=== PATIENT | male | born 1995 | race Caucasian/White ===

== ENCOUNTER 2020-12-18 10:13 | Emergency (ER) | payer BC ==
[~2020-12-18] VITALS: Ht 177.8 cm; Wt 100.0 kg
[2020-12-18 11:41] LABS: BASO % 0.5 % (0.0-1.0); EOS # 0.1 10^3/uL (0.0-0.5); EOS % 0.7 % (0.0-3.0); HEMATOCRIT 46.3 % (42.0-52.0); HEMOGLOBIN 16.3 g/dl (13.5-17.5); LYMPH # 1.4 10^3/uL (1.5-5.0); MEAN CORPUSCULAR HEMOGLOBIN 31.3 pg (27.0-33.0); MEAN CORPUSCULAR HGB CONC 35.2 g/dl (32.0-36.5); MONO # 0.5 10^3/uL (0.0-0.8); MONO % 5.9 % (2.0-8.0); NEUTROPHILS # 5.7 10^3/uL (1.5-8.5); NEUTROPHILS % 74.5 % (36.0-66.0); PLATELET COUNT, AUTOMATED 232 10^3/uL (150-450); WHITE BLOOD COUNT 7.6 10^3/uL (4.0-10.0)
--- NOTE | 2020-12-18 11:49 | REP ---
INDICATION: abd pain. COMPARISON: None. TECHNIQUE: PA chest with two-view abdomen. FINDINGS: PA chest: The lung guzman are well inflated and without pleural effusion, lateral pleural thickening, apical scarring or pneumothorax. There is no infiltrate, atelectasis or mass. The heart is not enlarged. There is no vascular redistribution or pulmonary edema. The aorta and airway were unremarkable. Mediastinal and hilar contours were normal. The bony thorax shows no acute finding. There is no free air under the diaphragm. Abdomen: Two views show nonspecific gas pattern with small amounts of stool scattered in the right and transverse colon. There is a paucity of stool and gas in the left colon and rectosigmoid. The small bowel loops also show a paucity of gas overall with nonspecific gas pattern. No dilated loops or air-fluid levels. No abnormal calcifications over the renal fossae, expected course of the ureters or overlying the shadow of the bladder. Bony structures demonstrate incomplete fusion of the spinous process of L5 which is an anatomic variation. The other spinous processes, pedicles, transverse processes, lower thoracic vertebral levels and associated ribs were all grossly intact. The sacrum, SI joints, pelvis and hips were also unremarkable. IMPRESSION: 1. No acute cardiopulmonary change in the chest. 2. Nonspecific gas pattern without obstruction, mass or free air. No air-fluid levels abut a paucity of gas overall. I could not exclude some gastroenteritis mild ileus. No significant or acute finding. <Electronically signed by Cliff Wynn > 12/18/20 [id number]
[2020-12-18 12:10] LABS: ALBUMIN 4.7 GM/DL (3.2-5.2); ALT/SGPT 30 U/L (12-78); BILIRUBIN,DIRECT 0.2 MG/DL (0.0-0.2); BILIRUBIN,TOTAL 0.7 MG/DL (0.2-1.0); BLOOD UREA NITROGEN 15 MG/DL (7-18); CALCIUM LEVEL 10.2 MG/DL (8.5-10.1); CARBON DIOXIDE LEVEL 28 MEQ/L (21-32); CHLORIDE LEVEL 106 MEQ/L (98-107); CREATININE FOR GFR 1.14 MG/DL (0.70-1.30); GLOMERULAR FILTRATION RATE > 60.0 (>60); GLUCOSE, FASTING 106 MG/DL (70-100); LIPASE 105 U/L (73-393); POTASSIUM SERUM 4.2 MEQ/L (3.5-5.1); SODIUM LEVEL 140 MEQ/L (136-145); TOTAL PROTEIN 8.7 GM/DL (6.4-8.2)
[2020-12-18] MEDS ORDERED: PEPC1TAB5 PO (12:26)
[2020-12-18] MEDS ORDERED: CARA1TAB6 PO (12:27)
[2020-12-18 12:45] VITALS: BP 151/87
== END 2020-12-18 12:47 | disposition home or self-care (01) ==
LOC: M ED 10:13
DX: K29.00 Acute gastritis without bleeding (principal)

== ENCOUNTER → 2021-03-15 | Outpatient (CLI) | payer BC ==
[~2021-03-15] MED LIST: CARA1TAB6 PO; PEPC1TAB5 PO
--- NOTE | 2021-03-15 11:42 | REPVR ---
PROCEDURE INFORMATION: Exam: CT Head Without Contrast Exam date and time: 03/15/2021 11:17 AM Age: 25 years old Clinical indication: Pain; Headache; Additional info: Dizziness TECHNIQUE: Imaging protocol: Computed tomography of the head without contrast. Radiation optimization: All CT scans at this facility use at least one of these dose optimization techniques: automated exposure control; mA and/or kV adjustment per patient size (includes targeted exams where dose is matched to clinical indication); or iterative reconstruction. COMPARISON: No relevant prior studies available. FINDINGS: Brain: No acute intracranial hemorrhage, cerebral edema, or midline shift. Cerebral ventricles: No hydrocephalus. Paranasal sinuses: There is no acute sinusitis. Mastoid air cells: There is minimal fluid in the left mastoid air cells. Orbital cavity: Unremarkable as visualized. Bones/joints: No acute fracture. Soft tissues: Unremarkable. IMPRESSION: No acute intracranial abnormality. Electronically signed by: Tal Hankins On 03/15/2021 11:41:53 AM
== END ==
LOC: M RAD 11:10
PROVIDERS: ATTEND Family Medicine
DX: R42 Dizziness and giddiness (principal)

== ENCOUNTER → 2021-04-24 | Outpatient (CLI) | payer BC ==
[~2021-04-24] MED LIST changes: +OMEP-221 PO
== END ==
LOC: M LABSMTC 10:36
PROVIDERS: ATTEND Anesthesiology
DX: Z01.812 Encounter for preprocedural laboratory examination (principal); Z20.822 Contact with and (suspected) exposure to COVID-19

== ENCOUNTER → 2021-04-28 | Day surgery (SDC) | payer BC ==
[~2021-04-28] VITALS: Ht 177.8 cm; Wt 95.3 kg
[~2021-04-28] MED LIST changes: +LIDOCAINE 2% 100MG/5ML SDV (FOR ANES.) As Ordered ONE; +NS 1,000 ML IV ONE; +fentaNYL 100 MCG/2 ML INJECTION (J3010) As Ordered ONE; +propofoL 200 MG/20 ML VIAL As Ordered ONE
--- OUTSIDE RECORDS SUMMARY | 2021-04-28 13:01 | CCD | Continuity of Care Document ---
Author Author Carson LEE M.D. Organization Unknown Address [address] [place] [id number] Phone [phone] Care Team Providers Care Bun Machine Operator Name Role Phone Ignacio Miller M.D. AUTM [phone] Problems Active Problems Provider Date Abdominal pain Rafal Lee M.D. Onset: 04/15/20 21 Social History Type Date Description Comments Sex Unknown ETOH Use Occasionally Tobacco Use Start: Unknown Patient has never smoked Allergies and adverse reactions Description No Known Drug Allergies Medications Description No Active Medications Immunizations Description No Information Available Vital Signs Date Vital Result Comment 04/15/2021 12:09pm Height 70 inches 5'10" Weight 214.00 lb BP Systolic 129 mmHg BP Diastolic 86 mmHg Heart Rate 57 /min BMI (Body Mass Index) 30.7 kg/m2 Weight 97.070 kg Body Temperature 97.3 F Results Description No Information Available Procedures Date Code Description Status 04/15/2021 15233 Office/Outpatient New Low MDM 30 -44 Minutes Completed Medical Devices Description No Information Available Encounters Type Date Location Provider Dx Diagnosis Office Visit 04/15/2021 11:45a Main Office Rafal Lee M.D. R 10.9 Unspecified abdominal pain Assessments Date Code Description Provider 04/15/2021 R10.9 Unspecified abdominal pain Bharti Lee M.D. Plan of Treatment Future Appointment(s):* 04/21/2021 8:30 am - Rissa at Main Office * 04/28/2021 8:45 am - Rafal Lee M.D. at Main Office 04/15/2021 - Rafal Lee M.D.* R10.9 Unspecified abdominal pain* New Xrays:* Ultrasound of the Gallbladder, Ordered: 04/15/21 * Comments:* 25 yo wm who presents for a h/o right sided intermittent abdominal pain since summer. He had abdominal pain/nausea/vomiting after drinking red bull + vodka. He had some relief from the ppi + sulcrafate. Poorly compliant. No nausea/vomiting. Lost weight, gaining it back. Plan:1. Omeprazole 40 mgs po qd + Sulcrafate bid.2. Egd + gallbladder us3. Alcohol in moderation only. Functional Status Description No Information Available Mental Status Description No Information Available Referrals Description No Information Available
--- OUTSIDE RECORDS SUMMARY | 2021-04-28 13:01 | CCD | Clinical Summary ---
Author [facility] Organization [facility] Address [address] [place] [address] Phone Care Team Providers Care Behavioral Geneticist Name Role Phone Ignacio Miller MD Unavailable [phone] Reason for Referral No Reason for Referral Recorded Reason for Visit and Chief Complaint The Chief Complaint is: pt ambulated to the room well with continued c/o's abdo bob pain, dizzines s, andf fatigue,Jkimball deployment specialist was with this pt for 9 minutes Problems Includes: Problems addressed during this encounter and other active Problems Current Visit Onset Date - Time Resolved Date - Time Provider C ondition Status Alcohol Abuse 03/02/2021 - 6:42PM Ignacio Miller MD Active Vertigo 03/02/2021 - 3:35PM Ignacio Miller MD A ctive Peptic Ulcer 12/31/2020 - 3:26PM Ignacio Miller MD A ctive Plan of Treatment Pending Tests Order Diagnosis Results Due Ordering Provi kim Lab OCCULT BLOOD 03/09/21 Ignacio shrestha MD Lab VITAMIN B12 04/01/21 Ignacio shrestha MD Lab CBC w/ Auto Diff 04/01/21 Ignacio ponce MD Lab COMPREHENSIVE METABOLIC PANEL 04/01/21 Ignacio Miller MD Lab IRON 04/01/21 Ignacio shrestha MD Lab FOLATE 04/01/21 Ignacio shrestha MD Lab Lyme Total Ab w/ Reflex,S 04/01/21 Gl enn Nadia Miller MD Lab MAGNESIUM 04/01/21 Ignacio shrestha MD Lab TSH 04/01/21 Ignacio shrestha MD Referrals To Diagnosis GI Peptic [facility], site uns p, unsp as ac or chr, w/o hemor or perf Note: Please schedule patient with provi kim. Pt presented with abdominal pain to right of umbilicus in early December 2020, treated with omeprazole with improvement but stomach still hurts. Please eval. Would like [place]. Future Appointments Date Time Location Provider Chronic Disease Follow-up 04/07/2021 3:30PM [facility] Ignacio Miller MD [facility] 01/06/2022 11:10AM [facility] Ignacio calderón MD Future Tests Order Diagnosis Results Due Ordering Provid er Lab CT BRAIN HEAD WO CONTRAST 03/02/21 Gl yonas Miller MD - Instructions for patient Labwork and CT of head ordered. Ordered for the persistent dizziness in addition to that vague heavy sensation of right LE and his concerns he could have a brain tumor. Acamprosate discussed to use to help limit alcohol use. He says he has done fine just on his own, not drinking, without meds, plans to continue that. GI referral submitted F/u 1 month - Return to the clinic if condition wors ens or new symptoms arise Assessments Includes: Assessments from this encounter - Peptic ulcer - Vertigo - Alcohol abuse Instructions Includes: Instructions from this encounter Instructions to patient Instructions for patient ~Labwork and C T of head ordered. Ordered for the persistent dizziness in addition to that vague heavy sensation of right LE and his concerns he could have a brain tumor. ~Acamprosate discussed to use to help limit alcohol use. He says he has done fine just on his own, not drinking, without meds, plans to continue that. ~GI referral submitted ~F/u 1 month Education and Decision Aids were provide d during visit for: Patient education and counseling provid ed for chronic care goals and plan Patient appeared to understand therapeut ic regimen for Medications and Plan of Care; Assessed using Teach-back Method Medical Equipment - Implanted Devices Includes: Current DevicesNo Medical Equipment Recorded Medications Includes: Medications discussed during this encounter and other current Medicati ons Discontinued / Stopped on this date on 12/18/2020 Sucralfate 1 GM Oral Tablet Provider: Diagnosis: Current Medications (continue as prescribed) Omeprazole 40 MG Oral Capsule Delayed Release 12/31/2020 Provider: Ignacio Miller MD Diagnosis: Acute peptic ulcer, site unsp, w/o hemorrhage or perforation once a day Medications Administered Includes: Administered Medications from this encounterNo Administered Medications Recorded Vital Signs Includes: Vital Signs from this encounter Vital Name 03/02/2021 03:01P Blood Pressure Sitting L 126/76 BP Cuff Size Large Pulse Rate-Sitting (bpm) 82 Pulse Rhythm Regular Respiration Rate (breaths/min) 68 Temp-Tympanic (F) 204 Height (in) 68 Weight (lb) 204 Body Mass Index (kg/m2) 31.0 Body Surface Area (m2) 2.06 Pain Level 3 Oxygen Saturation (%) 98 Results Includes: Results discussed during this encounterNo Results Recorded For Specified Dates History of Present Illness Includes: History of Present Illness from this encounter Carson Ryan is a 25 year old male. - Medication reconciliation performed. Carson presents for f/u abdominal pain and dizziness. He was seen by me 12/31/20 and started omeprazole for what felt like an ulcer on exam. He says that particular stomach pain went away, but he is still dizzy. Dizziness can be all day, or on and off every 30 minutes. Has not gone a whole day without being dizzy. Sometimes it is only mild. Other times it is more of a loss of focus. Does not snore loudly. Has never been told he stops breathing when he is sleeping. Gets dizzy whether sitting down or standing. Usually not dizzy when he gets up in the morning, but when he eats starts getting dizzy. Eating 3 meals a day. Just recently notices right LE seems to get fatigued easier than it should. Feels tired to move it from the hip down, but not the left leg. Admits to sometimes heavy alcohol use. Was drinking 15 beers or more a day on the weekends for weeks but stopped the alcohol 2 weeks ago and thinks that is partly why he feels better. No medical issues run in the family. Social History Description Last Updated Not using drugs 12/31/2020 Smoking status 12/31/2020 : Never smoker 12/31/2020 Alcohol use (male) less than 4 drinks per occasion / 14 per week 11/12/2013 Educational level 12 11/12/2013 Exercise frequency 11/12/2013 No physical disability 11/12/2013 Normal activities of daily living 11/12/2013 Secondhand cigarette smoke exposure 12/31/2012 control method 10/31/2012 Sexually active 10/31/2012 Social history unchanged 10/31/2012 Not a current smoker states he has chew ed tobacco in the past but no longer does it 10/31/2012 Caffeine use 10/31/2012 Poor exercise habits 10/31/2012 Amount of sleep was nine hours/day 10/31/2011 2 snacks per day 10/31/2011 3 meals per day 10/31/2011 Diet provides sufficient food variety 10/31/2011 Activities 10/31/2011 Educational level: grade was ten 10/31/2011 Not working part-time 10/31/2011 Procedures and Surgical History Surgical History Last Updated No prior surgery 09/25/2013 Medical History Includes: Medical History addressed during this encounter Description Last Updated 2008--Laceration repair to right forea rm "down to the bone" from a bed spring in his bed 11/12/2013 No smoke exposure 09/25/2013 Not taking medication 09/25/2013 Past medical history -Please see Problem List for Act francesca Chronic Problems 09/25/2013 A high-salt diet not from processed foods 10/17/2007 Diet does not need elimination of junk food 10/17/2007 Diet provides sufficient fruit 10/17/2007 Diet provides sufficient vegetables 10/17/2007 Family History Includes: Family History addressed during this encounter Description Last Updated Family history reviewed - unchanged since last visit 09/25/2013 Family history unchanged 09/25/2013 Review of Systems Includes: Review of Systems from this encounter Gastrointestinal: Abdominal pain right upper abdominal pain. Musculoskeletal: Musculoskeletal symptoms right sided weakness. Neurological: Dizziness. Mental Status Includes: Mental Status from this encounter Description Oriented to time, place, and person Functional Status Includes: Functional Status from this encounterNo Functional Status Recorded Physical Exam Includes: Physical Exam from this encounter Lungs: -normal breath sounds/voice sounds -no wheezing was heard -no rhonchi were heard -no rales/crackles were heard Cardiovascular System: -no murmurs were heard -heart rate and rhythm normal -no bradycardia present -no tachycardia present Abdomen: -the bowel sounds were normal -abdominal tenderness -no mass was palpated in the abdomen -the liver was not enlarged -the spleen was not enlarged Psychiatric Exam: -the grooming was normal -the affect was normal -the mood was euthymic Neurological System: -the cranial nerves were normal -no sensory exam abnormalities were noted -the deep tendon reflexes were normal -oriented to time, place, and person General Status: -in no acute distress -well developed -well developed -well nourished -well nourished Vital Signs: -current vital signs reviewed Immunizations Includes: Immunizations addressed during this encounterNo Immunizations Recorded Allergies Includes: Active AllergiesNo Known Allergies Encounters Encounter Provider Location Date Check-In Time Check-Out Time D iagnosis Medication Follow-up Ignacio Miller MD [facility] 03/02/2021 2 :56PM 3:56PM Peptic Ulcer, Vertigo, Alcohol Abuse Insurance Includes: Active Insurance Policies Plan Name Member ID Group # Subscriber Relationship Effective Da fanta 1 - [employer] [id number] Brian Ryan 06/30/2018 - Unknown 2 - D [employer] [id number] Shelby Nessa Jose Child 04/28/2012 - 05/28/2014 Advance Directives Includes: Current Advance Directives Directive Pat Aware Third Alliance Party Effective Date Reviewed Status packet given Pt Bill of Rights, Priv Prac, Ad Dir Yes 12/31/2020 Current and Verified Note: declined Health Concerns Includes: Health Concerns addressed during this encounterNo Active Health Concerns Recorded Goals Includes: Goals addressed during this encounterNo Active Goals Recorded Interventions Includes: Interventions addressed during this encounterNo Interventions Recorded Evaluations & Outcomes Includes: Evaluations & Outcomes addressed during this encounterNo Outcomes Recorded
--- OUTSIDE RECORDS SUMMARY | 2021-04-28 13:01 | CCD | Clinical Summary ---
Author Author [facility] Organization [facility] Address [address] [place] [address] Phone Care Team Providers Care Copyright Manager Name Role Phone Ignacio Miller MD Unavailable [phone] Reason for Referral No Reason for Referral Recorded Reason for Visit and Chief Complaint The Chief Complaint is: pt ambulated to the room well with continued c/o's abdo bob pain, dizzines s, andf fatigue,Jkimball commissary representative was with this pt for 9 minutes Problems Includes: Problems addressed during this encounter and other active Problems Current Visit Onset Date - Time Resolved Date - Time Provider C ondition Status Vertigo 03/02/2021 - 3:35PM Ignacio Miller MD [...] shrestha MD Referrals To Diagnosis GI Peptic ulc, site uns p, unsp as ac or chr, w/o hemor or perf Note: Please schedule patient with provi kim. Pt presented with abdominal pain to right of umbilicus in early December 2020, treated with omeprazole with improvement but stomach still hurts. Please eval. Would like [place]. Future Appointments Date Time Location Provider [facility] 01/06/2022 11:10AM [facility] Ignacio calderón MD Future Tests Order Diagnosis Results Due Ordering Provid er Lab CT BRAIN HEAD WO CONTRAST 03/02/21 John Miller MD - Instructions for patient Labwork and CT of head ordered GI referral submitted F/u 1 month - Return to the clinic if condition wors ens or new symptoms arise Assessments Includes: Assessments from this encounter - Peptic ulcer - Vertigo Instructions Includes: Instructions from this encounter Instructions to patient Instructions for patient ~Labwork and C T of head ordered ~GI referral submitted ~F/u 1 month Education [...] hip down, but not the left leg. No medical issues run in the family. [...] D iagnosis Medication Follow-up Ignacio Miller MD [facility] 03/02/2021 2 :56PM 11:59PM Peptic Ulcer, Vertigo Insurance Includes: Active Insurance Policies Plan Name Member ID Group # Subscriber Relationship Effective Da fanta 1 - [employer] [id number] Brian Ryan 06/30/2018 - Unknown 2 - D [employer] [id number] Nessa Ryan Child 04/28/2012 - 05/28/2014 Advance Directives Includes: Current Advance Directives Directive Pat Aware Third Green Party Effective Date Reviewed Status packet given [...]
== END | disposition home or self-care (01) ==
LOC: M OPP 12:56
PROVIDERS: ATTEND Internal Medicine Gastroenterology
DX: R10.13 Epigastric pain (principal); Z53.8 Procedure and treatment not carried out for other reasons

== ENCOUNTER → 2021-05-03 | Outpatient (CLI) | payer BC ==
[~2021-05-03] MED LIST changes: -LIDOCAINE 2% 100MG/5ML SDV (FOR ANES.) As Ordered ONE; -NS 1,000 ML IV ONE; -fentaNYL 100 MCG/2 ML INJECTION (J3010) As Ordered ONE; -propofoL 200 MG/20 ML VIAL As Ordered ONE
--- NOTE | 2021-05-03 09:13 | REP ---
INDICATION: GULLBLADDER COMPARISON: None. TECHNIQUE: Real time james scale ultrasound examination using curved array transducer. FINDINGS: Liver is normal in contour, size, and echogenicity without focal hepatic lesions identified. Pancreas is incompletely evaluated due to interposed bowel gas. The gallbladder is normal and without gallstones, wall thickening, or pericholecystic fluid. No biliary ductal dilatation is appreciated and the common bile duct measures 2.9 mm diameter. Right kidney is normal in reniform shape without hydronephrosis and measures 11.1 x 5.7 x 5.0 cm. No ascites in the visualized right upper quadrant. IMPRESSION: Normal limited right upper quadrant ultrasound <Electronically signed by Damon Blunt > 05/03/21 [id number]
== END ==
LOC: M RAD 08:46
PROVIDERS: ATTEND Internal Medicine Gastroenterology
DX: R10.9 Unspecified abdominal pain (principal)

== ENCOUNTER → 2021-05-26 | Outpatient (CLI) | payer BC | LOC: M LABSMTC 11:02 | PROVIDERS: ATTEND Anesthesiology | DX: Z01.818 Encounter for other preprocedural examination (principal); Z11.52 Encounter for screening for COVID-19 ==

== ENCOUNTER 2024-11-22 17:14 | Emergency (ER) | payer OTHER ==
[~2024-11-22] VITALS: Ht 177.8 cm; Wt 103.8 kg
[~2024-11-22 17:14] MED LIST changes: -OMEP-221 PO; +OMEP40CA5 PO
[2024-11-22 20:39] LABS: BASO # 0.1 10^3/uL (0.0-0.2); BASO % 0.7 % (0.0-1.0); EOS # 0.3 10^3/uL (0.0-0.5); EOS % 3.3 % (0.0-3.0); HEMATOCRIT 43.9 % (42.0-52.0); HEMOGLOBIN 14.9 g/dl (13.5-17.5); LYMPH # 3.1 10^3/uL (1.5-5.0); LYMPH % 35.1 % (24.0-44.0); MEAN CORPUSCULAR HEMOGLOBIN 30.5 pg (27.0-33.0); MEAN CORPUSCULAR HGB CONC 33.9 g/dl (32.0-36.5); MONO # 0.7 10^3/uL (0.0-0.8); MONO % 8.3 % (2.0-8.0); NEUTROPHILS # 4.7 10^3/uL (1.5-8.5); NEUTROPHILS % 52.5 % (36.0-66.0); PLATELET COUNT, AUTOMATED 216 10^3/uL (150-450); RED BLOOD COUNT 4.88 10^6/uL (4.30-6.10); WHITE BLOOD COUNT 8.8 10^3/uL (4.0-10.0)
[2024-11-22 20:51] LABS: ERYTHROCYTE SEDIMENTATION RATE 8 mm/hr (0-15)
[2024-11-22 21:25] LABS: ALBUMIN 4.5 G/DL (3.2-5.2); BILIRUBIN,DIRECT 0.1 MG/DL (<0.4); BILIRUBIN,TOTAL 0.4 MG/DL (0.3-1.2); C REACTIVE PROTEIN QUANTITATIV 1.27 MG/DL (<1.0)
[2024-11-22] MEDS ORDERED: ISOVUE-370 76% 100 ML VIAL As Ordered ONE (21:29)
[2024-11-22 23:04] LABS: KETONE, URINE AUTO RFX NEGATIVE (NEGATIVE); LEUKOCYTE ESTERASE UR AUTO RFX NEGATIVE (NEGATIVE); MUCUS, URINE RFX SMALL (NEGATIVE); NITRITE, URINE AUTO RFX NEGATIVE (NEGATIVE); RBC, URINE AUTO RFX 0 /HPF (0-3); SQUAM EPITHELIAL CELL UR AURFX 0 /HPF (0-6); WBC, URINE AUTO RFX 0 /HPF (0-3)
[2024-11-23] MEDS ORDERED: COLA100C5 PO (00:50)
[2024-11-23] MEDS: DOCUSATE SODIUM 100 MG CAPSULE PO ONE (01:11)
[2024-11-23 01:23] VITALS: BP 143/97; TEMP 96.9; O2SAT 100
== END 2024-11-23 01:25 | disposition home or self-care (01) ==
LOC: M ED 17:14
DX: K59.00 Constipation, unspecified (principal); Z79.899 Other long term (current) drug therapy
CPT/HCPCS: 36415; 74177; 76870; 80047; 80076; 81001; 83605; 85025; 85652; 86140; 93976; 99284; Q9967